=== PATIENT | male | born 1965 | race Caucasian/White ===

== ENCOUNTER 2019-06-16 19:44 | Inpatient (IN) | payer OTHER ==
[~2019-06-16] VITALS: Ht 182.9 cm; Wt 211.1 kg
[2019-06-16] MEDS ORDERED: FUROSEMIDE20 MG PO (20:09)
[2019-06-16] MEDS ORDERED: K-TAB ER20 MEQ PO (20:10)
--- OUTSIDE RECORDS SUMMARY | 2019-06-16 21:30 | XMS ---
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 E.DMargie VISIT COUNT (12 MO.) 2 [facility] H[address] 3 [facility] H. 1 CANDY GatesMargie Hand TOTAL 6 NOTE: Visits indicate total known visits. ED/UCC VISIT TRACKING (12 MO.) 06/16/2019 19:46 [facility] TYPE: Emergency COMPLAINT: - LEG SWELLING 05/10/2019 22:07 [facility]. TYPE: Emergency COMPLAINT: - cellulitis DIAGNOSES: - cellulitis - Cellulitis, unspecified - Nausea - Sepsis, unspecified organism Sepsis, u 03/18/2019 09:10 [facility] TYPE: Emergency COMPLAINT: - CALLED TO RETURN DIAGNOSES: - CALLED TO RETURN - Blood Infection - Pneumonia, unspecified organism - Bacteremia 03/17/2019 18:42 [facility] TYPE: Emergency COMPLAINT: - chest pain DIAGNOSES: - Shortness of Breath - Pneumonia, unspecified organism - chest pain 01/12/2019 16:30 [facility] TYPE: Emergency COMPLAINT: - Arm Injury DIAGNOSES: - Arm Injury - Strain unsp musc/fasc/tend at shldr/up arm, left arm, init 07/15/2018 10:33 [facility] SANDI Margie TYPE: Emergency DIAGNOSES: - Chest pain, unspecified - Chest Pain INPATIENT VISIT TRACKING (12 MO.) 05/11/2019 04:55 [facility] SANDI Lindsay TYPE: Medical Surgical DIAGNOSES: - Sepsis, unspecified organism Sepsis, u - Cellulitis of right lower limb [email or web address]
[2019-06-17] MEDS ORDERED: AMOXICILLIN500 MG PO (16:02)
--- NOTE | 2019-06-17 16:30 | EKG ---
[facility] [address] [place], [place] [address] Signed Sinus tachycardia Left axis deviation Abnormal ECG No previous ECGs available Confirmed by EVENS LEACH DO ([id number]) on 06/17/2019 4:30:35 PM Electronically Signed By: EVENS LEACH DO 06/17/19 1630 PATIENT NAME: BERE MEDINA Electrocardiogram DATE OF : 65 PHYSICIAN: EVENS LEACH DO REPORT #: [id number] REPORT IS CONFIDENTIAL AND NOT TO BE RELEASED WITHOUT AUTHORIZATION
[2019-06-17] MEDS ORDERED: TELMISARTAN40 MG PO (17:46)
[2019-06-17] MEDS ORDERED: ONDANSETRON HCL4 MG PO (17:46)
[2019-06-17] MEDS ORDERED: NYSTATIN15 GM TOP (17:47)
[2019-06-17] MEDS ORDERED: DULOXETINE HCL60 MG PO (17:47)
[2019-06-17] MEDS ORDERED: ALEVE220 MG PO (17:48)
[2019-06-17] MEDS ORDERED: CULTURELLE1 EACH PO (17:48)
[2019-06-17] MEDS ORDERED: IMODIUM A-D2 M2 PO (17:48)
[2019-06-19] MEDS ORDERED: PENICILLIN V P500 MG PO (11:37)
[2019-06-19] MEDS ORDERED: ONDANSETRON HCL4 MG PO (11:44)
[2019-06-19] MEDS ORDERED: OXYCODONE HCL5 MG PO (11:44)
== END 2019-06-20 09:05 | disposition home or self-care (01) | DRG 872 ==
LOC: ED 19:44 → CCU 22:06 → MS 22:06
PROVIDERS: ADMIT Student in an Organized Health Care Education/Training Program
PROC: 5A09357 Assistance with Respiratory Ventilation, Less than 24 Consecutive Hours, Continuous Positive Airway Pressure (ICD-10-PCS; principal; 2019-06-16)
DX: A40.1 Sepsis due to streptococcus, group B (principal); L03.115 Cellulitis of right lower limb; Z68.43 Body mass index [BMI] 50.0-59.9, adult; I10 Essential (primary) hypertension; F39 Unspecified mood [affective] disorder; E66.01 Morbid (severe) obesity due to excess calories; R51 Headache; R11.0 Nausea; F17.220 Nicotine dependence, chewing tobacco, uncomplicated; G47.33 Obstructive sleep apnea (adult) (pediatric); Z79.899 Other long term (current) drug therapy; Z88.8 Allergy status to other drugs, medicaments and biological substances; Z88.1 Allergy status to other antibiotic agents; Z91.14 Patient's other noncompliance with medication regimen
CPT/HCPCS: 36415; 71045; 73701; 80048; 80053; 80202; 81001; 83605; 83735; 85025; 86060; 87040; 87077; 87186; 93005; 93010; 93308; 93971; 94761; 96361; 96374; 96375; 96376; 99285-25; J0690; J0692; J0696; J1170; J1650; J1885; J2405; J2550; J3370; J3475; J7030; J7060; J7120; Q0163; Q9957; Q9967